=== PATIENT | female | born 1985 | race Caucasian/White ===

== ENCOUNTER 2025-01-31 09:12 | Emergency (ER) | payer MEDICAID, SELFPAY ==
[2025-01-31] VITALS (7 sets, daily range): BP systolic 112–141; BP diastolic 76–91; PULSE 55–77; RESP 15–18; TEMP 36.3–36.9; O2SAT 98–100; BMI 24.2
--- NOTE | ~2025-01-31 | XR_ITS ---
CLINICAL HISTORY: weakness 2 view chest x-ray. Comparison: None Findings: Normal lung volumes. Lungs are clear. No pneumothorax or pleural effusion. Heart size normal. No passive venous congestion. No midline shift or tracheal deviation. No acute fracture. Impression: 1. No acute cardiopulmonary disease. This document has been electronically signed by: Pawan Pelayo MD on 01/31/2025 10:45:33
--- NOTE | 2025-01-31 09:35 | ED_ITS ---
HPI - General Adult General Chief complaint: General Medical Stated complaint: needs transfusion Time Seen by Provider: 01/31/25 09:35 Source: patient Mode of arrival: ambulatory Limitations: no limitations History of Present Illness ED Provider: Janet Vivar PA-C HPI narrative: This is a 39 year old female with a history of thyroid disease treated with radioactive iodine therapy at a young age, menorrhagia, and chronic anemia that presents for evaluation of dizziness for the last week. She endorses that she left her previous home recently and was unable to take anything with her including her medications. Medications that she has been prescribed historically include levothyroxine, prozac, vitamin D supplement, and iron supplement. She does not currently have a primary care provider so she was not able to get new prescriptions. She endorses feeling fatigued, dizzy, and cold with a sensation of being in slow motion for the last week. She endorses occasional numbness and tingling in her lower legs that has caused her to fall before. She states that her last fall was three days ago but she did not hit her head and denies any pain from the incident. She denies any current fever, chills, or sweats. She denies cough, chest pain or shortness of breath. She endorses that she has had many transfusions in the past for her anemia stating that her last one was in June or August. A colonoscopy and endoscopy was ordered at the time of her last transfusion but she was unable to get it because she did not have a support person to pick her up. She endorses a history of very heavy menstruation that started at age 12. Her heavy bleeding lasts 2-3 days and she has to wear a super tampon and two super pads with hourly changes to keep up with the bleeding. She endorses a sinus and ear infection a few weeks ago that resolved on its own. She states that she is now in stable housing and that she just got a new job. Related Data Previous Rx's ?Medication ?Instructions ?Recorded docusate sodium 100 mg capsule 100 mg PO DAILY Constip ation #21 01/31/25 (Colace) caps ferrous sulfate 325 mg (65 mg 325 mg PO DAILY #21 tabs 01/31/25 iron) tablet (iron) levothyroxine 50 mcg capsule 50 mcg PO DAILY #21 caps 01/31/25 Allergies Allergy/AdvReac Type Severity Reaction Status Date / Time ciprofloxacin Allergy Swelling Verified 01/31/25 09:16 Penicillins Allergy Swelling Verified 01/31/25 09:16 Review of Systems 2 Constitutional: Constitutional: Reports as per HPI Eyes: Eyes: Reports as per HPI ENT: Reports as per HPI Cardiovascular: Cardiovascular: Reports as per HPI Respiratory: Respiratory: Reports as per HPI Gastrointestinal: Gastrointestinal: Reports as per HPI Genitourinary: Genitourinary: Reports as per HPI Musculoskeletal: Musculoskeletal: Reports as per HPI Integumentary/Breasts: Skin/Breast: Reports as per HPI Neurologic: Reports as per HPI Psychiatric: Psychiatric: Reports as per HPI Endocrine: Endocrine: Reports as per HPI Hematologic/Lymphatic: Hematologic/Lymphatic: Reports as per HPI Allergic/Immunologic: Allergic/Immunologic: Reports as per HPI [facility] Past Medical History Attestation statement: The following information was validated with the patient. Source: old records reviewed and nursing notes reviewed Social History Social History Smoked in Last 30 Days: No Use of substances other than those prescribed or required for medical reasons: No Advance Directives: No Advance Directives Information Provided: No Do you have a plan to hurt others: No Plan Physical Exam ED Vital Signs: Vital Signs - 24 hr 01/31/25 09:15 01/31/25 11:32 01/31/25 11:45 Temperature 97.3 F 98 F 98.2 F Pulse Rate 77 55 55 Respiratory Rate 15 18 18 Blood Pressure 141/91 H 121/82 112/81 Pulse Oximetry 100 Oxygen Delivery Method Room Air 01/31/25 11:50 01/31/25 15:08 01/31/25 15:09 Temperature 98.4 F 98.4 F Pulse Rate 59 60 60 Respiratory Rate 18 18 18 Blood Pressure 117/76 117/76 117/76 Pulse Oximetry 98 Oxygen Delivery Method Room Air BMI result Body Mass Index 24.2 Const General: cooperative, no acute distress, alert and awake Orientation/consciousness: patient oriented x3 HENMT Head: Yes normal to inspection and Yes atraumatic Ears: hearing grossly normal bilaterally and external ears normal General nose exam: Normal external nose present, no nasal discharge noted and no epistaxis Face and sinus: Yes normal facial exam, No abrasion and No laceration Mouth: no drooling and no muffled voice Eyes General: appearance normal, both eyes and all related structures Periorbital: periorbital findings normal Eyelids: Yes eyelids normal Conjunctivae: conjunctivae normal Pupils: Equal, round and reactive pupils present EOM: EOMs intact bilaterally Neck Neck: Yes normal visual inspection and Yes full ROM Resp Effort & Inspection: normal respiratory effort and able to speak in complete sentences Auscultation: clear to auscultation bilaterally Cardio Rate: regular rate Rhythm: regular rhythm Skin General skin exam: no rashes or lesions noted Neuro General: patient oriented x3 and moves all extremities Cranial nerves: Yes Equal, round and reactive pupils present Cognition (Neuro): normal cognition Extrem General: Yes normal to inspection, Yes full ROM and Yes capillary refill normal Psych Appearance: grossly normal Mental Status: mental status grossly normal Affect: normal affect Attitude: cooperative Thought process: Normal thought process present Thought content: Normal thought content present Insight: Good insight present (Psych) Medical Decision Making Medical Decision Making MDM Narrative: Patient is a 39 year old assigned female at with a history of Graves disease and anemia presenting to the emergency department today with concerns of acute on chronic anemia. Patient's physical exam was as noted in the physical exam portion of this note. Patient's blood work showed a hgb of 7.2 with hct of 24.5, tsh of >100 and free t4 <0.42. Patient's chest x-ray showed no acute process. I reviewed the patient's records from [facility] (September of 2022) and confirmed the patient is chronically anemic and has Graves disease. Patient's clinical presentation is most consistent with anemia and hypothyroidism. Patient use to be on iron supplements and levothyroxine - I have restarted both of those medications for the patient. Patient was given 1 unit of PRBCs I explained my physical exam findings as well as all test results to the patient. I answered all questions asked by the patient. I stressed the importance of the patient taking her medication as directed (either prescribed or as the over the counter packaging recommends). I stressed the importance of the patient following up with her primary care provider. I stressed the importance of the patient returning to the emergency department immediately if her symptoms were to worsen or if she were to develop any dizziness, shortness of breath, difficulty breathing, chest pain, blurry vision, loss of vision, nausea, vomiting, abdominal pain, fever, chills, back pain, or any other complaints. Patient verbalized agreement and understanding with this treatment plan and discharge. Differential Diagnosis Differential Diagnoses: The differential diagnosis associated with the presentation includes Acute on chronic anemia Anemia Hypothyroidism Admission/Observation Consideration of admission/observation: Escalation of care including admission/observation considered Patient would have been admitted to the hospital had her work up had any findings where hospital admission was appropriate and her clinical presentation warranted hospital admission. Lab Data [facility] Lab Attestation statement: I reviewed the patient's lab results. My interpretation of these results are in the [facility] Rationale portion of this note. 01/31/25 09:35 01/31/25 09:35 Labs: Lab Results 01/31/25 01/31/25 Range/Units 09:35 10:32 WBC 2.6 L (4.8-10.8) X10*3/uL RBC 2.86 L (4.20-5.50) X10*6/uL Hgb 7.2 L (12.0-16.0) g/dl Hct 24.5 L (37.0-47.0) % MCV 85.7 (80.0-98.0) fL MCH 25.2 L (27.0-33.0) pg MCHC 29.4 L (31.0-35.0) g/dl RDW 17.2 H (11.0-16.0) % Plt Count 259 (160-400) X10*3/uL MPV 9.0 L (9.4-12.3) fL Immature Gran % (Auto) 0.0 (0.0-0.4) % Neut % (Auto) 51.0 (45-73) % Lymph % (Auto) 37.1 (20-40) % [place] % (Auto) 7.7 (2-11) % Eos % (Auto) 2.7 (0-4) % Baso % (Auto) 1.5 (0-2) % Lymph # (Auto) 1.0 L (1.2-4.9) X10*3/uL [place] # (Auto) 0.2 (0.1-1.2) X10*3/uL Eos # (Auto) 0.1 (0.0-0.4) X10*3/uL Baso # (Auto) 0.0 (0.0-0.2) X10*3/uL Abs Immat Gran (auto) 0.00 (0.00-0.03) X10*3/uL Absolute Neuts (auto) 1.3 L (2.0-8.3) x10*3/uL Absolute Nucleated RBC 0.000 (0.0-0.012) X10*3/uL Nucleated RBC % (auto) 0.0 (0.0-0.2) /100WBC Sodium 137 (135-145) mmol/L Potassium 4.2 (3.3-5.1) mmol/L Chloride 104 (96-108) mmol/L Carbon Dioxide 28 (22-29) mmol/L Anion Gap 9 L (12-20) BUN 17 H (9-16) mg/dL Creatinine 1.23 (0.5-1.4) mg/dL Estim Creat Clear Calc 62.9 Estimated GFR 48 Random Glucose 80 (60-115) mg/dL Calcium 8.9 (8.4-10.2) mg/dL Magnesium 2.3 (1.6-2.6) mg/dL Total Bilirubin 0.4 (0.0-1.0) mg/dL AST 103 H (5-31) U/L ALT 81 H (0-31) U/L Alkaline Phosphatase 52 (39-117) U/L Total Protein 8.0 (6.5-8.0) g/dL Albumin 4.6 (3.5-5.0) g/dL TSH > 100.00 H (0.32-4.0) uIU/mL Free T4 < 0.42 L (0.71-1.85) ng/dL COVID-19 (RORY) Negative (Negative) COVID-19 Clin Com See Note Influenza Type A (VALERIANO) Negative (Negative) Influenza Type B (VALERIANO) Negative (Negative) Influenza A & B Note See Note Blood Type O Positive Antibody Screen NEGATIVE Crossmatch See Detail Independent Interpretation I performed an independent interpretation of an: Plain X-Ray Interpretation: My interpretation is in agreement with the radiologist's impression of this imaging study. L Reason for Exam: weakness CLINICAL HISTORY: weakness 2 view chest x-ray. Comparison: None Findings: Normal lung volumes. Lungs are clear. No pneumothorax or pleural effusion. Heart size normal. No passive venous congestion. No midline shift or tracheal deviation. No acute fracture. Impression: 1. No acute cardiopulmonary disease. This document has been electronically signed by: Pawan Pelayo MD on 01/31/2025 10:45:33 Dictated By: Pawan Pelayo MD Signed By: Electronically signed by Pawan Pelayo MD 01/31/25 1046 Radiology Impression Discussion of test interpretation with radiology: I have reviewed the radiologist's reading. External Record Review External record reviewed: Outpatient record (Reviewed [facility] records from 09/2022) and Outside ED record (Reviewed [facility] records from 09/2022) Discharge Plan Discharge Clinical Impression: Anemia, Hypothyroidism Patient Disposition: Home, Self-Care Instructions: Hypothyroidism (ED), Anemia (ED) Additional Instructions: Your hemoglobin was low and your thyroid function was low. You were given 1 unit of blood today while in the department. It is crucial you take your iron supplement and thyroid medication as prescribed and follow up with a primary care provider, hematology/client technical specialist, and endocrinology. IF you are prescribed home medications and/or you are taking over the counter medications at home - it is very important you continue to do so as prescribed / directed unless told otherwise. Follow up with a primary care provider. Return to the emergency department immediately if your symptoms worsen or if you develop any numbness, tingling, dizziness, shortness of breath, difficulty breathing, chest pain, blurry vision, loss of vision, nausea, vomiting, abdominal pain, fever, chills, back pain, or any other complaints. L If you do not have a primary care provider - call any of the below numbers to establish and follow up with a primary care provider. [facility] Primary Care ([place]) [phone] [place] [address], [address] [facility] Primary Care ([address] [place]) [phone] [place] [address], [address] [facility], [address] [facility] Primary Care ([address] [place]) [phone] [place] [address], [address] [facility], [address] [facility] Primary Care ([place]) [phone] [place] [address], [address] [facility], [address] [facility] Family Medicine [phone] [place] [address], [address] Please see the information below about our Patient Portal. If you are not yet enrolled in the [facility] Patient Portal, you will receive an enrollment email invitation following your visit to any [facility] setting. You may also self-enroll in the Patient Portal by visiting our website: [email or web address] The following information is required to access the Patient Portal: - Your [facility] Medical Record Number - Your personal home email address (must match what is in your electronic medical record, Registration staff can assist with this) - Name - Date of Capabilities of the Patient Portal: - Message some providers - View upcoming appointments - Access your health summary, medical history, and visit history - View current conditions and allergies - View procedure and lab results - View your medications, including guidelines, side effects, and precautions - Complete pre-appointment questionnaires requested by your provider - Ready summary reports of your office visits and procedures To access the Patient Portal Mobile Raheem, follow these directions: - Search TuneIn Twitter Dashboard in the Raheem Store or [employer]rics Store - Download the Raheem - Search for [facility] - Enter your login/password Prescriptions: New levothyroxine 50 mcg capsule 50 mcg PO DAILY Qty: 21 0RF ferrous sulfate [iron] 325 mg (65 mg iron) tablet 325 mg PO DAILY Qty: 21 0RF docusate sodium [Colace] 100 mg capsule 100 mg PO DAILY Qty: 21 0RF Referrals: [facility] Endocrinology [Provider Group] Referral Note: Call to establish and follow up with the endocrinology team to manage your hypothyroidism. [facility] Oncology/Hematology [Provider Group] Referral Note: Call to establish and follow up with a hotel service manager/oncologist for your anemia. Stand Alone Forms: Work/School Release Print Language: Macedonian
[2025-01-31 09:42] LABS: Hematocrit 24.5 % (37.0-47.0); Hemoglobin 7.2 g/dl (12.0-16.0); Imm Gran Abs Auto 0.00 X10*3/uL (0.00-0.03); Imm Gran Pct Auto 0.0 % (0.0-0.4); Lymphocytes Absolute Auto 1.0 X10*3/uL (1.2-4.9); MANUAL DIFF FLAG NO; Mean Corpuscular HGB Conc 29.4 g/dl (31.0-35.0); Mean Corpuscular Hemoglobin 25.2 pg (27.0-33.0); Mean Corpuscular Volume 85.7 fL (80.0-98.0); NRBC Abs Auto 0.000 X10*3/uL (0.0-0.012); NRBC Pct Auto 0.0 /100WBC (0.0-0.2); Platelet Count 259 X10*3/uL (160-400); Red Blood Count 2.86 X10*6/uL (4.20-5.50); White Blood Count 2.6 X10*3/uL (4.8-10.8)
[2025-01-31 10:01] LABS: Alanine Aminotransferase 81 U/L (0-31); Albumin Level 4.6 g/dL (3.5-5.0); Alkaline Phosphatase 52 U/L (39-117); Anion Gap 9 (12-20); Aspartate Amino Transferase 103 U/L (5-31); Blood Urea Nitrogen 17 mg/dL (9-16); Calcium 8.9 mg/dL (8.4-10.2); Carbon Dioxide 28 mmol/L (22-29); Chloride 104 mmol/L (96-108); Creatinine Clr Calc Pharmacy 62.9; Estimated Glomerular Filt Rate 48; Magnesium 2.3 mg/dL (1.6-2.6); Potassium 4.2 mmol/L (3.3-5.1); Sodium 137 mmol/L (135-145); Total Protein 8.0 g/dL (6.5-8.0)
[2025-01-31 11:06] LABS: COVID-19 Test Negative (Negative); IDNOW Serial# 55D5AD1C; IDNOW Serial# 6674DD1D; Influenza B2 Negative (Negative)
[2025-01-31 11:33] LABS: Free T4 (Free Thyroxine) < 0.42 ng/dL (0.71-1.85)
--- NOTE | 2025-01-31 11:46 | PC.NURSE ---
prbc infusing, pt with nad, skin wpd, playing game on phone
--- NOTE | 2025-01-31 13:16 | PC.NURSE ---
nad, watching tv and eating and drinking food, family at bedside, skin wpd,
== END 2025-01-31 15:42 | disposition home or self-care (01) ==
PROVIDERS: Physician Assistant Medical; Emergency Provider Emergency Medicine
DX: D64.9 Anemia, unspecified (principal); E03.9 Hypothyroidism, unspecified; Z11.52 Encounter for screening for COVID-19; Z79.899 Other long term (current) drug therapy
CPT/HCPCS: 36415; 36430; 71046; 80053; 83735; 84439; 84443; 85025; 86850; 86900; 86901; 86920; 87502; 87635; 99284; 99285; P9016

== ENCOUNTER → 2025-01-31 09:59 | Outpatient (BNV) | payer MEDICAID, SELFPAY | PROVIDERS: Visit Provider Radiology Diagnostic Radiology | DX: R53.1 Weakness (principal) | CPT/HCPCS: 71046 ==

== ENCOUNTER 2025-02-14 07:10 | Emergency (ER) | payer MEDICAID, SELFPAY ==
[2025-02-14 07:13] VITALS: BP 130/90; PULSE 65; RESP 20; TEMP 36; O2SAT 99; BMI 23.4
[2025-02-14 07:46] VITALS: BP 130/90; PULSE 65; RESP 20; TEMP 36
[2025-02-14 08:01] LABS: MANUAL DIFF FLAG NO
[2025-02-14 08:03] LABS: Hematocrit 26.8 % (37.0-47.0); Hemoglobin 8.1 g/dl (12.0-16.0); Imm Gran Abs Auto 0.00 X10*3/uL (0.00-0.03); Imm Gran Pct Auto 0.0 % (0.0-0.4); Lymphocytes Absolute Auto 1.2 X10*3/uL (1.2-4.9); Mean Corpuscular HGB Conc 30.2 g/dl (31.0-35.0); Mean Corpuscular Hemoglobin 26.3 pg (27.0-33.0); Mean Corpuscular Volume 87.0 fL (80.0-98.0); NRBC Abs Auto 0.000 X10*3/uL (0.0-0.012); NRBC Pct Auto 0.0 /100WBC (0.0-0.2); Platelet Count 207 X10*3/uL (160-400); Red Blood Count 3.08 X10*6/uL (4.20-5.50); White Blood Count 3.0 X10*3/uL (4.8-10.8)
--- NOTE | 2025-02-14 08:03 | MHC.EDTECH ---
Patient provided urine cup and is aware a urine sample is required. Patient unable to provide urine at this time.
--- NOTE | 2025-02-14 08:04 | ED_ITS ---
HPI - General Adult General Chief complaint: Psychiatric Symptoms Stated complaint: crisis Time Seen by Provider: 02/14/25 08:02 Source: patient Mode of arrival: ambulatory Limitations: no limitations History of Present Illness ED Provider: Janet Vivar PA-C HPI narrative: Patient is a 39 year old assigned female at with a history of thyroid disease treated with radioactive iodine therapy at a young age, menorrhagia, and chronic anemia presenting to the emergency department today with depression. Patient states that she has been feeling more depressed ever since losing her brother. Patient states that she would overdose on heroin. Patient denies any other complaints at this time. Related Data Previous Rx's ?Medication ?Instructions ?Recorded docusate sodium 100 mg capsule 100 mg PO DAILY Constip ation #21 01/31/25 (Colace) caps ferrous sulfate 325 mg (65 mg 325 mg PO DAILY #21 tabs 01/31/25 iron) tablet (iron) levothyroxine 50 mcg capsule 50 mcg PO DAILY #21 caps 01/31/25 Allergies Allergy/AdvReac Type Severity Reaction Status Date / Time ciprofloxacin Allergy Swelling Verified 02/14/25 07:16 Penicillins Allergy Swelling Verified 02/14/25 07:16 Review of Systems 2 Constitutional: Constitutional: Reports as per HPI Eyes: Eyes: Reports as per HPI ENT: Reports as per HPI Cardiovascular: Cardiovascular: Reports as per HPI Respiratory: Respiratory: Reports as per HPI Gastrointestinal: Gastrointestinal: Reports as per HPI Genitourinary: Genitourinary: Reports as per HPI Musculoskeletal: Musculoskeletal: Reports as per HPI Integumentary/Breasts: Skin/Breast: Reports as per HPI Neurologic: Reports as per HPI Psychiatric: Psychiatric: Reports as per HPI Endocrine: Endocrine: Reports as per HPI Hematologic/Lymphatic: Hematologic/Lymphatic: Reports as per HPI Allergic/Immunologic: Allergic/Immunologic: Reports as per HPI [facility] Past Medical History Attestation statement: The following information was validated with the patient. Source: old records reviewed and nursing notes reviewed Social History Social History Advance Directives: No Advance Directives Information Provided: No Do you have a plan to hurt others: No Plan Physical Exam ED Vital Signs: Vital Signs - 24 hr 02/14/25 17:35 02/15/25 06:13 Temperature 97.0 F Pulse Rate 48 L Respiratory Rate 18 16 Blood Pressure 109/65 Pulse Oximetry 96 Oxygen Delivery Method Room Air BMI result Body Mass Index 23.4 Const General: cooperative, no acute distress, alert and awake Nutritional Appearance: well nourished Orientation/consciousness: patient oriented x3 HENMT Head: Yes normal to inspection and Yes atraumatic Ears: hearing grossly normal bilaterally and external ears normal General nose exam: Normal external nose present, no nasal discharge noted and no epistaxis Face and sinus: Yes normal facial exam, No abrasion and No laceration Mouth: Normal oral and palatal mucosa present, no drooling and no muffled voice Eyes General: appearance normal, both eyes and all related structures Periorbital: periorbital findings normal Eyelids: Yes eyelids normal Conjunctivae: conjunctivae normal Pupils: Equal, round and reactive pupils present EOM: EOMs intact bilaterally Neck Neck: Yes normal visual inspection and Yes full ROM Resp Effort & Inspection: normal respiratory effort and able to speak in complete sentences Neuro General: patient oriented x3, moves all extremities and CN's II-XI intact bilaterally Cranial nerves: Yes Equal, round and reactive pupils present Cognition (Neuro): normal cognition Extrem General: Yes normal to inspection, Yes full ROM and Yes capillary refill normal Psych Appearance: grossly normal Mental Status: mental status grossly normal Affect: Sad affect present Attitude: Guarded attititude/behavior present Thought content: Suicidality present Course Reevaluation(s) Reevaluation #1: Date: 02/15/25 Provider: Jordi Alejo MD 05:28 Patient in physician observation for psychiatric evaluation.? No acute events reported overnight. No current complaints. VS stable.? Patient is in bed search status. Will continue to monitor. 09:03 Physician observation ended at 09:03 hours. Patient was re-evaluated by the CARE team. The patient presented with suicidal ideation and her presented with similar complaints. The stated he was no longer suicidal in his discharged by me. The patient now told the care team that she is no longer suicidal and does not want to pursue further inpatient treatment. Therefore the patient will be discharged home. Medications Administered Generic Name Dose Route Start Last Admin Trade Name Freq PRN Reason Stop Dose Admin Docusate Sodium 100 mg 02/14/25 09:00 02/14/25 13:31 Docusate Sodium 100 Mg Capsule PO Not Given DAILY AUGUSTIN Ferrous Sulfate 324 mg 02/14/25 09:00 02/14/25 13:31 Ferrous Sulfate 324 Mg Tablet. PO Not Given DAILY [facility] Levothyroxine Sodium 50 mcg 02/14/25 09:00 02/14/25 13:32 Levothyroxine Sodium 50 Mcg Tablet PO Not Given DAILY@0600 [facility] Medical Decision Making Medical Decision Making MDM Narrative: Patient is a 39 year old assigned female at with a history of thyroid disease treated with radioactive iodine therapy at a young age, menorrhagia, and chronic anemia presenting to the emergency department today with suicidal ideation. Patient's physical exam was as noted in the physical exam portion of this note. Patient's blood work showed chronic anemia and chronic hypothyroidism but otherwise unremarkable. Patient was evaluated by the CARE team who recommended inpatient level of psychiatric care. I explained my physical exam findings as well as all test results to the patient. I answered all questions asked by the patient. Patient placed in observation at 0817 on 02/14/2025 pending either admission to the [facility] psychiatric floor or transferred to an appropriate psychiatric facility. Differential Diagnosis Differential Diagnoses: The differential diagnosis associated with the presentation includes SI Depression Admission/Observation Consideration of admission/observation: Escalation of care including admission/observation considered Patient placed in observation at 0817 on 02/14/2025 pending either admission to the [facility] psychiatric floor or transferred to an appropriate psychiatric facility. Consult Healthcare Provider Management of the patient was discussed with: Behavioral Health Provider (spoke with the CARE team as noted in the MDM Rationale portion of this note. ) Lab Data [facility] Lab Attestation statement: I reviewed the patient's lab results. My interpretation of these results are in the MDM Rationale portion of this note. 02/14/25 07:55 02/14/25 07:55 Labs: Lab Results 02/14/25 02/14/25 Range/Units 07:55 13:22 WBC 3.0 L (4.8-10.8) X10*3/uL RBC 3.08 L (4.20-5.50) X10*6/uL Hgb 8.1 L (12.0-16.0) g/dl Hct 26.8 L (37.0-47.0) % MCV 87.0 (80.0-98.0) fL MCH 26.3 L (27.0-33.0) pg MCHC 30.2 L (31.0-35.0) g/dl RDW 18.0 H (11.0-16.0) % Plt Count 207 (160-400) X10*3/uL MPV 9.9 (9.4-12.3) fL Immature Gran % (Auto) 0.0 (0.0-0.4) % Neut % (Auto) 50.0 (45-73) % Lymph % (Auto) 39.1 (20-40) % Perkins % (Auto) 8.3 (2-11) % Eos % (Auto) 1.3 (0-4) % Baso % (Auto) 1.3 (0-2) % Lymph # (Auto) 1.2 (1.2-4.9) X10*3/uL Perkins # (Auto) 0.3 (0.1-1.2) X10*3/uL Eos # (Auto) 0.0 (0.0-0.4) X10*3/uL Baso # (Auto) 0.0 (0.0-0.2) X10*3/uL Abs Immat Gran (auto) 0.00 (0.00-0.03) X10*3/uL Absolute Neuts (auto) 1.5 L (2.0-8.3) x10*3/uL Absolute Nucleated RBC 0.000 (0.0-0.012) X10*3/uL Nucleated RBC % (auto) 0.0 (0.0-0.2) /100WBC Sodium 140 (135-145) mmol/L Potassium 3.4 (3.3-5.1) mmol/L Chloride 105 (96-108) mmol/L Carbon Dioxide 27 (22-29) mmol/L Anion Gap 11 L (12-20) BUN 15 (9-16) mg/dL Creatinine 1.32 (0.5-1.4) mg/dL Estim Creat Clear Calc 58.6 Estimated GFR 44 Random Glucose 77 (60-115) mg/dL Calcium 9.2 (8.4-10.2) mg/dL Total Bilirubin 0.4 (0.0-1.0) mg/dL AST 80 H (5-31) U/L ALT 63 H (0-31) U/L Alkaline Phosphatase 54 (39-117) U/L Total Protein 8.0 (6.5-8.0) g/dL Albumin 4.6 (3.5-5.0) g/dL TSH > 100.00 H (0.32-4.0) uIU/mL Free T4 < 0.42 L (0.71-1.85) ng/dL Urine Color Yellow Urine Appearance Clear Urine pH 6.5 (5.0-9.0) Ur Specific [place] 1.010 (1.005-1.025) Urine Protein Negative (Neg-Trace) mg/dL Urine Glucose (UA) Negative (Negative) mg/dL Urine Ketones Negative (Negative) mg/dL Urine Blood Trace H (Negative) Urine Nitrite Positive H (Negative) Ur Leukocyte Esterase Trace H (Negative) Urine RBC 0-2 (0-2) /HPF Urine WBC 6-10 H (0-5) /HPF Ur Squamous Epith Cells 6-10 (0-2) /HPF Urine Bacteria 4+ (None Seen) Hyaline Casts 3-5 (0-2) /LPF Urine Test NEGATIVE (NEGATIVE) Urine Opiates Screen Not Detected (Not Detect) Ur Buprenorphine Scrn Not Detected (Not Detect) ng/mL Ur Oxycodone Screen Not Detected (Not Detect) ng/mL Urine Methadone Screen Not Detected (Not Detect) ng/mL Urine Fentanyl Screen Not Detected (Not Detect) Ur Barbiturates Screen Not Detected (Not Detect) Ur Phencyclidine Scrn Not Detected (Not Detect) Ur Amphetamines Screen Not Detected (Not Detect) U Benzodiazepines Scrn Not Detected (Not Detect) Urine Cocaine Screen POSITIVE H (Not Detect) U Marijuana (THC) Screen Not Detected (Not Detect) Ethyl Alcohol < 10 mg/dL Critical Care Time Critical Care Time Critical Care Time: Yes Total Critical Care Time: 37 Attestation: I spent 37 minutes of Critical Care Time with this patient. This does not include time spent on separately reported billable procedures. Discharge Plan Discharge Clinical Impression: Suicidal ideation Depression Qualifiers: Depression Type: unspecified Qualified Code(s): F32.A - Depression, unspecified Patient Disposition: Home, Self-Care Additional Instructions: You were evaluated by our care team. Please follow their instructions. Continue taking medications as prescribed by your providers. You were seen in our Emergency Department today for treatment of a behavioral health issue. It is important after your visit that you follow up with either your behavioral health provider or a primary care doctor within 7 days.? If you have trouble finding a therapist you can reach out to [address] [phone] The National Suicide and Crisis Lifeline can be reached 7 days a week 24 hours a day.? Call 988 to speak with someone.? Return for any worsening symptoms or concerns such as thoughts of self harm or harm to others. Please call 911 if you feel your mental health is worsening.? Prescriptions: No Action levothyroxine 50 mcg capsule 50 mcg PO DAILY Qty: 21 0RF ferrous sulfate [iron] 325 mg (65 mg iron) tablet 325 mg PO DAILY Qty: 21 0RF docusate sodium [Colace] 100 mg capsule 100 mg PO DAILY Qty: 21 0RF Interventions: [place]-Suicide Risk Severity Scale Last Done: 02/15/25 08:19 Print Language: Romansh
[2025-02-14 08:20] LABS: Alanine Aminotransferase 63 U/L (0-31); Albumin Level 4.6 g/dL (3.5-5.0); Alkaline Phosphatase 54 U/L (39-117); Anion Gap 11 (12-20); Aspartate Amino Transferase 80 U/L (5-31); Blood Urea Nitrogen 15 mg/dL (9-16); Calcium 9.2 mg/dL (8.4-10.2); Carbon Dioxide 27 mmol/L (22-29); Chloride 105 mmol/L (96-108); Creatinine Clr Calc Pharmacy 58.6; Estimated Glomerular Filt Rate 44; Potassium 3.4 mmol/L (3.3-5.1); Sodium 140 mmol/L (135-145); Total Protein 8.0 g/dL (6.5-8.0)
--- NOTE | 2025-02-14 08:23 | PHA.MEDREC ---
Pharmacy Consult ? Medication Reconciliation Pharmacy has reviewed the medication reconciliation completed by nursing.
[2025-02-14 09:52] LABS: Free T4 (Free Thyroxine) < 0.42 ng/dL (0.71-1.85); Thyroid Stimulating Hormone > 100.00 uIU/mL (0.32-4.0)
[2025-02-14 13:40] LABS: Appearance Urine Clear; Cannabinoid Screen Urine Not Detected (Not Detect); Glucose Urine UA Negative (Negative); PH 6.5 (5.0-9.0); Specific Gravity - Urine 1.010 (1.005-1.025); UMIC TRIGGER UACC YES
[2025-02-14 13:42] LABS: UPreg QC Valid YES
[2025-02-14 13:45] LABS: UACC Culture Trigger YES
--- NOTE | 2025-02-14 13:49 | PC.NURSE ---
Pt has been sleeping, she ate lunch and went back to bed. safety maintained.
[2025-02-14 17:35] VITALS: BP 109/65; PULSE 48; RESP 18; TEMP 36.1; O2SAT 96
[2025-02-15 06:13] VITALS: RESP 16
[2025-02-15 09:18] VITALS: BP 145/83; PULSE 47; RESP 16; TEMP 36.4; O2SAT 97
[2025-02-15 09:19] VITALS: BP 109/65; PULSE 47; RESP 16; TEMP 36.1; O2SAT 96
== END 2025-02-15 09:31 | disposition home or self-care (01) ==
PROVIDERS: Physician Assistant Medical; Emergency Provider Emergency Medicine Emergency Medical Services
DX: F32.A Depression, unspecified (principal); R45.851 Suicidal ideations; Z63.4 Disappearance and death of family member
CPT/HCPCS: 36415; 80053; 80307; 81001; 81025; 84439; 84443; 85025; 87086; 99284; 99285; S9485